=== PATIENT | male | born 1990 | race African-American/Black ===

== ENCOUNTER 2019-01-25 00:36 | Emergency (ER) | payer OTHER ==
[~2019-01-25] VITALS: Ht 172.7 cm; Wt 150.0 kg
[~2019-01-25 00:36] MED LIST: NOCURR
[2019-01-25] MEDS ORDERED: TETANUS/DIPHTHERIA TOXOID [ADULT] 0.5 ML VIAL IM ONE (00:45)
[2019-01-25] MEDS ORDERED: RINGERS SOLUTION,LACTATED 1,000 ML IV ONE ×2 (00:45→00:48)
[2019-01-25] MEDS ORDERED: CeFAZolin 2 GM/DEXTROSE 50 ML IV ONE (00:45)
[2019-01-25] MEDS ORDERED: PERTUSS(ACELL),DIPH,TET VAC/PF 0.5 ML VIAL IM ONE (00:49)
[2019-01-25 01:00] VITALS: BP 144/73
== END 2019-01-25 01:34 | disposition short-term general hospital (02) ==
LOC: EMS 00:37
DX: S41.012A Laceration without foreign body of left shoulder, initial encounter (principal); W34.00XA Accidental discharge from unspecified firearms or gun, initial encounter; Y93.89 Activity, other specified; Y92.830 Public park as the place of occurrence of the external cause; Y99.8 Other external cause status
CPT/HCPCS: 71045; 90471; 90714; 96365; 99285; J0690; J7120; 90715

== ENCOUNTER 2019-02-05 14:36 | Emergency (ER) | payer OTHER ==
[~2019-02-05] VITALS: Ht 177.8 cm; Wt 150.0 kg
[2019-02-05] MEDS ORDERED: BACITRACIN 0.9 GM PACKET OINTMENT TP ONE (15:15)
[2019-02-05 16:20] VITALS: BP 124/77
== END 2019-02-05 16:56 | disposition home or self-care (01) ==
LOC: EMS 14:37
DX: Z48.00 Encounter for change or removal of nonsurgical wound dressing (principal); R03.0 Elevated blood-pressure reading, without diagnosis of hypertension

== ENCOUNTER 2019-03-09 12:04 | Emergency (ER) | payer OTHER ==
[~2019-03-09] VITALS: Ht 175.3 cm; Wt 150.0 kg
[2019-03-09] MEDS ORDERED: IBUPROFEN 800 MG TABLET ONE (12:09)
[2019-03-09] MEDS ORDERED: ACETAMINOPHEN 500 MG TABLET ONE (12:23)
[2019-03-09] MEDS ORDERED: IBUPROFEN 800 MG TABLET PO ONE (12:30)
[2019-03-09] MEDS ORDERED: ACETAMINOPHEN 500 MG TABLET PO ONE (12:30)
[2019-03-09 13:37] VITALS: BP 138/62
[2019-03-09] MEDS ORDERED: OSELTAMIVIR PHOSPHATE 75 MG CAPSULE PO ONE (14:15)
== END 2019-03-09 14:48 | disposition home or self-care (01) ==
LOC: EMS 12:05
DX: J11.1 Influenza due to unidentified influenza virus with other respiratory manifestations (principal); M79.10 Myalgia, unspecified site; Z91.011 Allergy to milk products

== ENCOUNTER 2019-07-28 13:14 | Emergency (ER) | payer OTHER ==
[~2019-07-28] VITALS: Ht 172.7 cm; Wt 150.0 kg
[2019-07-28] MEDS ORDERED: KETOROLAC TROMETHAMINE 30 MG/ML VIAL IM ONE (14:00)
[2019-07-28 15:26] VITALS: BP 138/85
== END 2019-07-28 15:45 | disposition home or self-care (01) ==
LOC: EMS 13:20
DX: S93.401A Sprain of unspecified ligament of right ankle, initial encounter (principal); Z91.011 Allergy to milk products; X50.9XXA Other and unspecified overexertion or strenuous movements or postures, initial encounter; Y93.89 Activity, other specified; Y92.89 Other specified places as the place of occurrence of the external cause; Y99.8 Other external cause status
CPT/HCPCS: 73610; 96372; 99283; J1885

== ENCOUNTER 2020-01-26 05:06 | Emergency (ER) | payer OTHER ==
[~2020-01-26] VITALS: Ht 172.7 cm; Wt 165.0 kg
[2020-01-26 06:02] LABS: BASOPHILS % (AUTO) 0.6 % (0.0-2.0); EOSINOPHILS % (AUTO) 2.2 % (1.0-6.0); HEMOGLOBIN 12.6 g/dL (13.5-17.5); LYMPHOCYTES # (AUTO) 1.8 K/uL (1.0-4.8); LYMPHOCYTES % (AUTO) 35.4 % (22.0-44.0); MEAN CORPUSCULAR HEMOGLOBIN 27.6 pg (26.0-34.0); MEAN CORPUSCULAR HGB CONC 33.1 G/dL (31.0-37.0); MEAN CORPUSCULAR VOLUME 83 fL (80-100); MONOCYTES # (AUTO) 0.7 K/uL (0.1-1.0); MONOCYTES % (AUTO) 13.2 % (2.0-9.0); NEUTROPHILS # (AUTO) 2.5 K/uL (1.8-7.7); NEUTROPHILS % (AUTO) 48.6 % (40.0-70.0); PLATELET COUNT (AUTO) 206 K/uL (150-450); RED BLOOD CELL COUNT(AUTO) 4.57 MIL/uL (4.50-5.90)
[2020-01-26 06:03] LABS: AMPHET/METH SCREEN,URINE NEGATIVE (NEGATIVE); BARBITURATE SCREEN, URINE NEGATIVE (NEGATIVE); BENZODIAZEPINES SCREEN,URINE NEGATIVE (NEGATIVE); CANNABINOID SCREEN,URINE NEGATIVE (NEGATIVE); COCAINE SCREEN,URINE NEGATIVE (NEGATIVE); METHADONE SCREEN, URINE NEGATIVE (NEGATIVE); OPIATE SCREEN,URINE NEGATIVE (NEGATIVE); PHENCYCLIDINE SCREEN,URINE NEGATIVE (NEGATIVE)
[2020-01-26 06:07] LABS: ANION GAP 6 mmol/L (8-16); CALCIUM, TOTAL 8.9 mg/dL (8.8-10.5); CARBON DIOXIDE 29 mmol/L (22-29); CHLORIDE 100 mmol/L (98-107); CREATININE 1.13 mg/dL (0.60-1.30); GLOMERULAR FILTR. RATE CALC > 60 mL/min (>60); GLUCOSE,RANDOM 96 mg/dL (70-110); POTASSIUM 3.8 mmol/L (3.5-5.1); SODIUM SERUM 135 mmol/L (136-145); UREA NITROGEN, BLOOD 13 mg/dL (7-18)
[2020-01-26 06:30] LABS: ALANINE AMINOTRANSFERASE 20 U/L (12-78); ALBUMIN 3.4 g/dL (3.4-5.0); ALKALINE PHOSPHATASE 62 U/L (46-116); ASPARTATE AMINOTRANSFERASE 11 U/L (15-37); BILIRUBIN,TOTAL 0.3 mg/dL (0.1-1.0); CREATINE KINASE, TOTAL ONLY 190 U/L (39-308); TOTAL PROTEIN, SERUM 7.5 g/dL (6.4-8.2)
[2020-01-26 06:35] LABS: B-TYPE NATRIURETIC PEPTIDE < 5 pg/mL (0-100)
[2020-01-26 08:15] VITALS: BP 125/78
== END 2020-01-26 08:37 | disposition home or self-care (01) ==
LOC: EMS 05:07
DX: R07.89 Other chest pain (principal); Z91.011 Allergy to milk products
CPT/HCPCS: 93005; 36415-L1; 36415-TC; 71045-TC

== ENCOUNTER 2020-08-22 09:42 | Emergency (ER) | payer OTHER ==
[~2020-08-22] VITALS: Ht 172.7 cm; Wt 160.4 kg
[2020-08-22 10:10] LABS: EOSINOPHILS % (AUTO) 2.6 % (1.0-6.0); HEMATOCRIT 38.4 % (41-53); HEMOGLOBIN 12.5 g/dL (13.5-17.5); LYMPHOCYTES # (AUTO) 0.9 K/uL (1.0-4.8); MEAN CORPUSCULAR HEMOGLOBIN 27.1 pg (26.0-34.0); MEAN CORPUSCULAR HGB CONC 32.5 G/dL (31.0-37.0); MEAN CORPUSCULAR VOLUME 84 fL (80-100); MONOCYTES # (AUTO) 0.7 K/uL (0.1-1.0); MONOCYTES % (AUTO) 25.6 % (2.0-9.0); NEUTROPHILS # (AUTO) 1.2 K/uL (1.8-7.7); NEUTROPHILS % (AUTO) 40.8 % (40.0-70.0); PLATELET COUNT (AUTO) 201 K/uL (150-450); RED CELL DISTRIBUTION WIDTH 13.5 % (11.5-14.5)
[2020-08-22 10:14] LABS: ANION GAP 12 mmol/L (8-16); CALCIUM, TOTAL 9.3 mg/dL (8.8-10.5); CARBON DIOXIDE 27 mmol/L (22-29); CHLORIDE 101 mmol/L (98-107); CREATININE 0.93 mg/dL (0.60-1.30); GLOMERULAR FILTR. RATE CALC > 60 mL/min (>60); GLUCOSE,RANDOM 93 mg/dL (70-110); POTASSIUM 3.9 mmol/L (3.5-5.1); SODIUM SERUM 140 mmol/L (136-145); UREA NITROGEN, BLOOD 12 mg/dL (7-18)
[2020-08-22] MEDS ORDERED: IBUPROFEN 600 MG TABLET PO ONE (10:45)
[2020-08-22 10:49] VITALS: BP 144/92
== END 2020-08-22 13:37 | disposition home or self-care (01) ==
LOC: EMS 13:37
DX: R07.2 Precordial pain (principal)
CPT/HCPCS: 71045; 80048; 84484; 85025; 93005; 99285; 36415-L1; 36415-TC

== ENCOUNTER 2021-02-20 20:31 | Emergency (ER) | payer OTHER ==
[~2021-02-20] VITALS: Ht 172.7 cm; Wt 150.0 kg
[2021-02-20 20:34] VITALS: BP 135/89
[2021-02-20] MEDS ORDERED: ASPIRIN 81 MG CHEWABLE TABLET PO ONE (21:00)
[2021-02-20 21:18] LABS: BASOPHILS % (AUTO) 0.5 % (0.0-2.0); EOSINOPHILS % (AUTO) 2.9 % (1.0-6.0); HEMOGLOBIN 14.2 g/dL (13.5-17.5); LYMPHOCYTES # (AUTO) 1.3 K/uL (1.0-4.8); MEAN CORPUSCULAR HEMOGLOBIN 27.9 pg (26.0-34.0); MEAN CORPUSCULAR HGB CONC 34.6 G/dL (31.0-37.0); MEAN CORPUSCULAR VOLUME 81 fL (80-100); MONOCYTES # (AUTO) 0.5 K/uL (0.1-1.0); MONOCYTES % (AUTO) 12.4 % (2.0-9.0); NEUTROPHILS # (AUTO) 2.4 K/uL (1.8-7.7); NEUTROPHILS % (AUTO) 54.2 % (40.0-70.0); PLATELET COUNT (AUTO) 249 K/uL (150-450); RED BLOOD CELL COUNT(AUTO) 5.07 MIL/uL (4.50-5.90); RED CELL DISTRIBUTION WIDTH 13.3 % (11.5-14.5)
[2021-02-20 21:29] LABS: ANION GAP 4 mmol/L (8-16); CALCIUM, TOTAL 9.6 mg/dL (8.8-10.5); CARBON DIOXIDE 31 mmol/L (22-29); CHLORIDE 103 mmol/L (98-107); CREATININE 1.18 mg/dL (0.60-1.30); GLOMERULAR FILTR. RATE CALC > 60 mL/min (>60); GLUCOSE,RANDOM 102 mg/dL (70-110); POTASSIUM 3.8 mmol/L (3.5-5.1); SODIUM SERUM 138 mmol/L (136-145); UREA NITROGEN, BLOOD 15 mg/dL (7-18)
[2021-02-20 21:35] LABS: ALANINE AMINOTRANSFERASE 22 U/L (12-78); ALBUMIN 3.8 g/dL (3.4-5.0); ALKALINE PHOSPHATASE 59 U/L (46-116); ASPARTATE AMINOTRANSFERASE 9 U/L (15-37); BILIRUBIN,TOTAL 0.2 mg/dL (0.1-1.0); TOTAL PROTEIN, SERUM 8.2 g/dL (6.4-8.2)
== END 2021-02-20 23:31 | disposition left against medical advice (07) ==
LOC: EMS 20:31
DX: R07.89 Other chest pain (principal); Z53.21 Procedure and treatment not carried out due to patient leaving prior to being seen by health care provider
CPT/HCPCS: 80053; 84484; 85025; 93005

== ENCOUNTER 2021-03-28 14:15 | Emergency (ER) | payer OTHER ==
[~2021-03-28] VITALS: Ht 172.7 cm; Wt 158.6 kg
[2021-03-28 14:57] VITALS: BP 127/76
[2021-03-28 18:07] LABS: COVID AG,FIA SOURCE NASOPHARYNGEAL
== END 2021-03-28 19:47 | disposition home or self-care (01) ==
LOC: EMS 14:20
DX: R51.9 Headache, unspecified (principal); Z20.822 Contact with and (suspected) exposure to COVID-19; Z91.011 Allergy to milk products
CPT/HCPCS: 99283